=== PATIENT | male | born 1995 | race Caucasian/White ===

== ENCOUNTER 2021-10-09 09:06 | Emergency (ER) | payer OTHER ==
[~2021-10-09] VITALS: Ht 185.4 cm; Wt 87.0 kg
[2021-10-09] MEDS ORDERED: MORPHINE SULFATE 4 MG/ML CPJ (NOT FOR IM USE) IV ONE (09:45)
[2021-10-09 10:12] VITALS: BP 134/89
[2021-10-09] MEDS ORDERED: KETAMINE HCL 50 MG/ML 10ML IV ONE (10:30)
[2021-10-09] MEDS ORDERED: PROPOFOL 200MG/20ML VIAL IV ONE (10:30)
[2021-10-09] MEDS ORDERED: ONDANSETRON HCL 4MG/2ML INJ IV ONE (10:30)
[2021-10-09] MEDS ORDERED: IBUP-2030 PO (12:06)
== END 2021-10-09 13:00 | disposition home or self-care (01) ==
LOC: ER 09:38
DX: S43.015A Anterior dislocation of left humerus, initial encounter (principal); W17.89XA Other fall from one level to another, initial encounter; Y93.18 Activity, surfing, windsurfing and boogie boarding; Y92.832 Beach as the place of occurrence of the external cause
CPT/HCPCS: 23650; 73030; 96374; 96375; 99152; 99285; J2270; J2405; J2704; J3490; L3670